=== PATIENT | male | born 1945 | race Caucasian/White ===

== ENCOUNTER 2024-10-05 08:00 | Day surgery (SDC) | payer OTHER ==
[2024-10-02 09:22] LABS: Absolute Basophils 0.1 K/uL (0-0.5); Absolute Eosinophils 0.2 K/uL (0-0.5); Absolute Lymphocytes (CBC) 1.8 K/uL (0.7-4.9); Absolute Monocytes 0.5 K/uL (0.1-1.3); Absolute Neutrophil 4.5 K/uL (1.8-8.0); Basophils % 0.8 % (0-1.3); Eosinophils % 2.5 % (0-4.4); Hematocrit 43.3 % (39.6-49.0); Hemoglobin 14.8 g/dL (13.6-17.9); Lymphocytes % 25.8 % (15.3-44.8); MCH 31.1 pg (27.0-35.0); MCHC 34.3 g/dL (32.0-36.0); MCV 90.9 fL (80-100); MPV 6.8 fL (7.6-11.3); Monocytes % 7.4 % (3.3-12.3); Neutrophils % 63.5 % (41.7-73.7); Platelets 248 thou/uL (152-406); RBC Red Blood Cell Count 4.76 M/uL (4.33-5.43); Red Cell Distribution Width 13.3 % (12.1-15.2)
[2024-10-02 09:36] LABS: PT Prothrombin Time 10.8 SECONDS (9.4-12.5); PTT, Activated Partial Thromb 27.3 SECONDS (24.3-36.9); Protime INR 1.03
--- NOTE | 2024-10-02 09:37 | RAD REPORT ---
EXAM: Chest Single View HISTORY: PRE-OP COMPARISON: 11/10/2016 FINDINGS: LUNGS/PLEURA: The lungs are clear. No pleural effusions or pneumothorax. No pulmonary edema. MEDIASTINUM: The mediastinal silhouette is within normal limits. CARDIAC: The cardiac silhouette is within normal limits. UPPER ABDOMEN: No significant abnormality. BONES: No acute abnormality. LINES/TUBES/OTHER: N/A IMPRESSION: No evidence of acute cardiopulmonary disease.
[2024-10-02 10:05] LABS: Anion Gap 7.7 mEq/L (5.0-15.0); Potassium 4.7 mEq/L (3.5-5.1)
--- NOTE | 2024-10-02 15:06 | EKG ---
Test Date: 2024-10-02 Test Time: 10:05:00 Party Bus Driver: ABIMBOLA MEASUREMENT RESULTS: Intervals: Rate: 76 WI: 204 QRSD: 82 QT: 362 QTc: 407 [place]: P: 56 WI: 204 QRS: 30 T: 36 INTERPRETIVE STATEMENTS: Normal sinus rhythm Possible Left atrial enlargement Borderline ECG Compared to ECG 03/18/2005 00:17:00 Sinus bradycardia no longer present Sinus arrhythmia no longer present First degree AV block no longer present Electronically Signed On 10-02-24 15:05:38 TUNNELLER by Leandro Qureshi
[2024-10-05] MEDS ORDERED: NA CHLORIDE 0.9% 500 ML ONE (08:33)
[2024-10-05] MEDS ORDERED: MIDAZOLAM HCL 2 MG/2 ML INJ ONE (09:53)
[2024-10-05] MEDS ORDERED: FENTANYL CITR 100 MCG/2 ML ONE (09:54)
[2024-10-05] MEDS ORDERED: TICAGRELOR 90 MG TABLET PO ONE (09:54)
[2024-10-05] MEDS ORDERED: HEPARIN 5000 UNIT/ML 1 ML VIAL ONE (10:55)
[2024-10-05] MEDS ORDERED: ATROPINE SULF 1 MG/10 ML SYR IV ONE (10:58)
[2024-10-05] MEDS ORDERED: ASPIRIN 325 MG TAB ONE (10:58)
[2024-10-05] MEDS ORDERED: HEPA 1000U/500MLS 2,000 UNIT/1,000 ML BAG IV ONE (11:20)
[2024-10-05] MEDS ORDERED: LIDOCAINE 1% 20 ML MDV ONE (11:21)
[2024-10-05 15:24] VITALS: BP 126/64; O2SAT 98
--- NOTE | 2024-10-07 22:58 | OP ---
Date of Procedure: 10/05/2024 Surgeon: Martín Thorne Procedure Performed: Selective coronary angiogram. Indication For Procedure: Unstable angina. Complications: None. Estimated Blood Loss: Less than 50 cc. Access: Right radial, closed by TR band. Sedation Time: 20 minutes with 1 of Versed and 25 of fentanyl. Description Of Procedure: After risks, benefits, and alternatives were explained to the patient, the patient agreed to proceed with procedure and signed informed consent. The patient was brought back to the mine laborer, prepped and draped in sterile fashion. Time-out was performed. Sedation was admini stered. Next, the right radial access was obtained using ultrasound-guided micropuncture technique. A [place] 4 catheter was advanced over the J-wire to the aortic root. Selective angiogram was done of the left and right coronary systems. At the end of the procedure, catheter was removed over a J-wir e. Sheath was removed. TR band was applied. Hemostasis achieved and the patient was moved to [facility] region in stable condition. Findings: 1. Left main normal. 2. LAD, mid 30% disease and mild luminal irregularities. 3. Left circ normal. 4. RCA normal. Assessment And Plan: Normal coronaries with mild mid LAD disease. Continue medical management with a workup. ALCIRA/CHLOE Voice ID: [id number] Report ID: [id number]
== END 2024-10-05 14:40 | disposition home or self-care (01) ==
LOC: CCL 08:00
PROVIDERS: ADMIT Internal Medicine; ATTEND Internal Medicine Interventional Cardiology
DX: I25.110 Atherosclerotic heart disease of native coronary artery with unstable angina pectoris (principal); I35.0 Nonrheumatic aortic (valve) stenosis; I10 Essential (primary) hypertension; G20.A1 Parkinson's disease without dyskinesia, without mention of fluctuations; Z79.899 Other long term (current) drug therapy
CPT/HCPCS: 36415; 71045; 76937; 80048; 85025; 85610; 85730; 93005; 93454; 93458; 99152; 99153; C1893; J0461; J1644; J2003; J2250; J3010; J7040; Q9966

== ENCOUNTER 2024-12-28 06:21 | Day surgery (SDC) | payer OTHER ==
[2024-12-25 12:47] LABS: Absolute Basophils 0.1 K/uL (0-0.5); Absolute Eosinophils 0.1 K/uL (0-0.5); Absolute Lymphocytes (CBC) 1.7 K/uL (0.7-4.9); Absolute Monocytes 0.5 K/uL (0.1-1.3); Absolute Neutrophil 4.5 K/uL (1.8-8.0); Basophils % 0.8 % (0-1.3); Eosinophils % 1.7 % (0-4.4); Hematocrit 37.7 % (39.6-49.0); Lymphocytes % 24.8 % (15.3-44.8); MCH 31.4 pg (27.0-35.0); MCHC 34.4 g/dL (32.0-36.0); MCV 91.1 fL (80-100); MPV 7.1 fL (7.6-11.3); Monocytes % 6.8 % (3.3-12.3); Neutrophils % 65.9 % (41.7-73.7); Nucleated Red Blood Cells % 0.1 % (0-0); Platelets 217 thou/uL (152-406); RBC Red Blood Cell Count 4.13 M/uL (4.33-5.43); Red Cell Distribution Width 13.3 % (12.1-15.2)
[2024-12-25 13:01] LABS: Anion Gap 9.9 mEq/L (5.0-15.0); Potassium 4.9 mEq/L (3.5-5.1)
[2024-12-28] MEDS: Ringers Lactate 1,000 ML IV ONE (06:50)
[2024-12-28] MEDS ORDERED: FENTANYL CITR 100 MCG/2 ML ONE (07:42)
[2024-12-28] MEDS ORDERED: propofoL 200 MG/20 ML VIAL IV ONE (07:42)
[2024-12-28] MEDS ORDERED: LIDOCAINE 1% MPF 5 ML VIAL ONE (07:42)
[2024-12-28] MEDS: CEFAZOLIN SODIUM 2 GM/VIAL ONE (08:05)
[2024-12-28] MEDS: LIDOCAINE HCL/EPINEPHRINE 20 ML MDV ONE (08:20)
[2024-12-28] MEDS ORDERED: ROCURONIUM 50 MG/5 ML VIAL IV ONE (08:36)
--- NOTE | 2024-12-28 09:02 | P.OP ---
Preoperative diagnosis: LEFT Inguinal Hernia Postoperative diagnosis: LEFT Inguinal Hernia Primary procedure: Open LEFT Inguinal Hernia Repair with mesh Anesthesia: GETA + Local Estimated blood loss: <5cc Specimen: None Findings: Ext oblique was thin, adipose contained in hernia Complications: None Implants: Medium Bard Perfix Plug and Patch Hernia Repair Mesh Transferred to: Recovery Room Condition: Good
[2024-12-28] MEDS: HYDROMORPHONE HCL 0.5 MG/0.5 ML INJ ONE (09:48)
[2024-12-28 09:52] VITALS: O2SAT 98
[2024-12-28 10:27] VITALS: TEMP 97.1
[2024-12-28] MEDS ORDERED: HYDROCODONE/APAP 10/325 TAB ONE (10:32)
[2024-12-28] MEDS: HYDROCODONE/APAP 10/325 TAB PO ONE (10:34)
--- NOTE | 2024-12-28 11:10 | OP ---
Date of Procedure: 12/28/2024 Surgeon: Nathan Minaya MD, Preoperative Diagnosis: Left inguinal hernia. Postoperative Diagnosis: Left inguinal hernia. Procedure Performed: Open left inguinal hernia repair with mesh. Anesthesia: General endotracheal plus local with 1% lidocaine with epinephrine. Estimated Blood Loss: Less than 5 cc. Specimen: None. Findings: The external oblique aponeurosis was thin and the adipose was contained within the direct inguinal hernia. Complications: None. Implants: Bard medium PerFix plug and patch hernia repair system/mesh. Disposition: The patient was transferred to recovery room in good condition. Procedure In Detail: After informed consent was obtained, patient was brought to the operating room, prepped and draped in the usual sterile fashion. After adequate anesthesia was achieved, I made a left inguinal incision down to subcutaneous tissue. After appropriately anesthetizing the skin, I d issected down using a 15 blade down through Camper's fat, ultimately exposed through Camper's fat and Mitch's fascia, exposed the thin alveolar external oblique aponeurosis which was heavily damaged by the large protruding hernia, which was appreciated in close apposition of the medial aspect of the s permatic cord. There was adipose contained within here. I dissected it circumferentially free after encircling the spermatic cord structures with a Isaiah drain. I dissected the hernia sac off and u ltimately placed it back in the preperitoneal space reducing the hernia sac to the preperitoneal spac e. At this point, I palpated the hernia defect and found a medium plug to be of adequate size. I th en deployed the Bard medium PerFix plug into the preperitoneal space, leaving the hernia sac inverted intact and I secured it circumferentially around using 2-0 PDS sutures around the shelving edge, at this point, with good apposition of the plug. At this point, I sized the hernia patch appropriately, secured it to the pubic tubercle on the medial aspect on the shelving edge of the internal oblique a poneurosis and the undersurface of the inguinal ligament circumferentially around reconstituting the deep inguinal ring with the same set 2-0 PDS suture in an interrupted fashion. At this point, the ar ea was copiously irrigated, suctioned out until completely dry. I closed the thin alveolar. Externa l oblique aponeurosis however was thin and alveolar and easy to see through it and had very little st rength to this layer as it had been quite dilated from the hernia in the past as described above. At this point, it was closed. The area was copiously irrigated once again and I closed the Camper's fa t and Mitch's fascia in an interrupted fashion and the deep dermal plane was closed with the same se t 3-0 Vicryl suture as was the Camper's fat and Mitch's fascia in an interrupted fashion using the s sravan set 3-0 Vicryl suture. The skin was then closed with a 4-0 Monocryl in a running fashion. Table [place] rueda was placed over top. The patient tolerated the procedure well without incident or complication and transferred to PACU in good condition. All counts were correct at the end of the case. VINNY/CHLOE Voice ID: [id number] Report ID: [id number]
[2024-12-28 11:58] VITALS: BP 168/61
== END 2024-12-28 11:15 | disposition home or self-care (01) ==
LOC: OR 06:21
PROVIDERS: ATTEND Surgery
PROC: 0YU60JZ Supplement Left Inguinal Region with Synthetic Substitute, Open Approach (ICD-10-PCS; principal; 2024-12-28 08:00)
DX: K40.90 Unilateral inguinal hernia, without obstruction or gangrene, not specified as recurrent (principal)
CPT/HCPCS: 85025; 80048; 36415; 49505; J2704; J2003; J3010; J1171; J7120